=== PATIENT | male | born 1960 | race Caucasian/White ===

== ENCOUNTER 2016-07-28 09:00 | Outpatient (RCR) | payer MEDICAID ==
[~2016-07-28 09:00] MED LIST: ALBU0.632 IH; ALBU0.8322 IH; ALBUTEROL NEB; ALPR.5T PO; ARICEPT; CEPH500C PO; DNPZ10T PO; DOXY100C2 PO; DOXY100T2 PO; FLT11013 IH; FRSM20T PO; HYDR-2890 PO; HYDR-3720 PO; INSASP10V SC; INSU100C4 SQ; INSU100V6 SQ; INSU100V8 SQ; IPRA3AMP19 IH; KLOR-CON; LEVO750T24 GT; LEVO750T6 PO; LISINOPRIL; LORA1TAB PO; LORA2TAB PO; LORAZEPAM; MTF500T PO; NICO1PAT16 TD; NITR0.4T12 SL; POTA10CA43 PO; PRD10T PO; PRD50T PO; RANI75TA30 PO; RANITIDINE; RNT150T PO; SPIRIVA
--- OUTSIDE RECORDS SUMMARY | 2016-07-28 09:04 | XMS REPORT | Continuity of Care Document ---
Author Author [facility] Organization [facility] Address Unknown Phone Unavailable Care Team Providers Care Property Disposal Officer Name Role Phone Whit Khan PCP [phone] Source Comments Some departments are not documenting in the electronic medical record. If you do not see the information that you expected, contact Release of Information in the Health Information Management department at [phone] for further assistance in locating additional records.[facility] Active Allergies and Adverse Reactions Allergen Noted Date Severity Reactions Comments Levaquin 12/19/2012 HIVES Current Medications Prescription Sig. Disp. Refills Start End Date Status Date ALPRAZolam (XANAX) 0.5 mg Take 0.5 mg by mouth Active tablet three times daily as needed. furosemide (LASIX) 20 mg Take 20 mg by mouth Active tablet daily. HYDROcodone-acetaminophen Take 1 Tab by mouth five Active (+) (VICODIN) 10-325 mg times daily as needed. tablet LORazepam (ATIVAN) 1 mg Take 1 mg by mouth every Active tablet 8 hours as needed. potassium chloride (KDUR) Take 10 mEq by mouth Active 10 mEq tablet daily. ranitidine(+) (ZANTAC) Take 150 mg by mouth Active 150 mg tablet three times daily. albuterol 0.5% Inhale 2.5 mg solution as Active (PROVENTIL; VENTOLIN) 2.5 directed four times mg/0.5 mL Nebu nebulizer daily. solution levothyroxine (SYNTHROID) TAKE 1 TABLET BY MOUTH 30 Tab 1 07/13/19 Active 75 mcg tablet DAILY. NEED TO RE-CHECK 14 TSH IN 6 WEEKS. Active Problems Problem Noted Date S/P laryngectomy 11/01/2012 Pre-operative respiratory examination 10/11/2012 Overview: 160 pyh Inhalers: albuterol nebs Trach x1 year 4.0 uncuffed shiley L ast Assessment & Plan: Clear for surgery tomorrow. No additional medications or recommendations at this time. Likely has some degree of COPD, no significant emphysema noted on prior CT. Lungs are clear today. Activity tolerance is good. Seems to clear secretions ok. Tolerated anesthesia without issue in the past. Discussed importance of continued smoking cessation, early ambulation, cough and deep breathing post op. Tracheostomy dependence (HCC) 09/11/2012 Tobacco use disorder, continuous 09/11/2012 Alcohol abuse 09/11/2012 Laryngeal cancer ([facility]) Overview: Planned total laryngectomy tomorrow. Social History Tobacco Use Types Packs/Day Years Used Date Former Smoker Cigarettes 4 40 Quit: 06/13/2012 Smokeless Tobacco: Chew Current User Comments: 1 can per week Alcohol Use Drinks/Week oz/Week Comments Yes 56 Cans of 33.6 beer daily; at least 8-9, it depends beer Last Filed Vital Signs Vital Sign Reading Time Taken Blood Pressure 171/94 08/01/2015 1:21 PM CDT Pulse 85 08/01/2015 1:21 PM CDT Temperature 36.6 C (97.9 F) 10/15/2012 7:00 AM CDT Respiratory Rate 20 10/10/2012 12:50 PM CDT Height 2.007 m (6' 7") 08/01/2015 1:21 PM CDT Weight 91.354 kg (201 lb 6.4 oz) 08/01/2015 1:21 PM CDT Body Mass Index 22.68 08/01/2015 1:21 PM CDT Oxygen Saturation 99% 10/15/2012 7:00 AM CDT Plan of Care Health Maintenance Due Date Last Done Comments Physical (Comprehensive) 1968 Exam Pertussis Vaccine 1972 Tetanus Vaccine 1978 Colorectal Cancer 2011 Screening Influenza Vaccine 01/15/2016 Results from Last 3 Months Not on file
== END 2016-10-26 | disposition home or self-care (01) ==
LOC: ONC 09:00
PROVIDERS: ATTEND Internal Medicine Hematology & Oncology
DX: C32.9 Malignant neoplasm of larynx, unspecified (principal)

== ENCOUNTER → 2019-07-09 | Outpatient (CLI) | payer MEDICAID ==
[~2019-07-09] MED LIST changes: +CATHETER FLUSH 10 ML SYR IV PRN; +HOLD METFORMIN - RECEIVED CONTRAST 20 ML VIAL IV SCH; +IOHEXOL 350 MG/ML 150 ML (OMNIPAQUE 350) VIAL IV ONE; +NS 100 ML (IVPB) BAG IV ONE
[2019-07-09 10:21] LABS: BUN/CREATININE RATIO 11; CREATININE SERUM 1.11 MG/DL (0.60-1.30); GFR ESTIMATED > 60
--- NOTE | 2019-07-09 12:11 | Diagnostic Imaging Report ---
INDICATION: Laryngeal carcinoma status post laryngectomy, follow-up. TECHNIQUE: Axial imaging through the neck and chest was performed after the administration of intravenous contrast. All CT scans use one or more of the following dose optimizing techniques: automated exposure control, MA and/or KvP adjustment based on patient size and exam type or iterative reconstruction. COMPARISON: Correlation is made with prior CT from 03/19/2016. FINDINGS: CT neck: Visualized intracranial structures are unremarkable. Postsurgical changes from laryngectomy are again noted. Right chest wall port has tip in the SVC. Hyperdensity noted in the right paraesophageal location is unchanged. Submandibular and parotid glands are symmetric. Posterior nasopharynx is unremarkable. Parapharyngeal fat planes are preserved. No definite cervical chain lymphadenopathy is seen. There are no fluid collections. IMPRESSION: Stable post-therapeutic changes to the neck when compared with study from 2016. No cervical lymphadenopathy is identified. CT chest: A right chest wall port has tip within the SVC. No axillary lymphadenopathy is detected. No mediastinal or hilar lymphadenopathy is identified. No pericardial or pleural fluid is detected. No pulmonary infiltrates, nodules or masses are seen. There is some linear atelectasis or scarring in the left lower lobe. Upper abdomen is unremarkable. IMPRESSION: Left lower lobe atelectasis or scarring. CT chest is stable when compared with study from 2016. No thoracic lymphadenopathy or evidence of pulmonary metastatic disease is identified. Dictated by: Dictated on workstation # [id number]
== END ==
LOC: RAD FS 09:04
PROVIDERS: ATTEND Otolaryngology Otolaryngology/Facial Plastic Surgery
DX: Z85.21 Personal history of malignant neoplasm of larynx (principal); Z98.890 Other specified postprocedural states
CPT/HCPCS: 36415; 70491; 71260; 82565; 84520

== ENCOUNTER → 2020-12-26 | Outpatient (CLI) | payer MEDICAID ==
[~2020-12-26] MED LIST changes: -CATHETER FLUSH 10 ML SYR IV PRN; -HOLD METFORMIN - RECEIVED CONTRAST 20 ML VIAL IV SCH; -IOHEXOL 350 MG/ML 150 ML (OMNIPAQUE 350) VIAL IV ONE; -NS 100 ML (IVPB) BAG IV ONE
== END ==
LOC: CARD 14:56
PROVIDERS: ATTEND Internal Medicine Cardiovascular Disease
DX: I10 Essential (primary) hypertension (principal)
CPT/HCPCS: 93306

== ENCOUNTER → 2020-12-26 | Outpatient (CLI) | payer MEDICAID ==
[2020-12-26 14:56] LABS: CALCIUM 9.6 MG/DL (8.5-10.1); CREATININE SERUM 1.53 MG/DL (0.60-1.30); POTASSIUM 4.7 MMOL/L (3.6-5.0)
== END ==
LOC: LAB 14:25
PROVIDERS: ATTEND Internal Medicine Cardiovascular Disease
DX: I10 Essential (primary) hypertension (principal)
CPT/HCPCS: 36415; 80048

== ENCOUNTER → 2020-12-30 | Outpatient (CLI) | payer MEDICAID ==
[2020-12-30 10:43] LABS: CALCIUM 9.1 MG/DL (8.5-10.1); CREATININE SERUM 1.39 MG/DL (0.60-1.30); POTASSIUM 4.3 MMOL/L (3.6-5.0)
== END ==
LOC: LAB 10:06
PROVIDERS: ATTEND Internal Medicine Cardiovascular Disease
DX: I10 Essential (primary) hypertension (principal)
CPT/HCPCS: 36415; 80048; 80061; 82088

== ENCOUNTER → 2021-03-16 | Outpatient (CLI) | payer MEDICAID ==
[2021-03-16 10:13] LABS: ALBUMIN 4.2 GM/DL (3.2-4.5); BILIRUBIN,TOTAL 0.5 MG/DL (0.1-1.0); CALCIUM 8.8 MG/DL (8.5-10.1); CREATININE SERUM 1.19 MG/DL (0.60-1.30); POTASSIUM 4.5 MMOL/L (3.6-5.0); TOTAL PROTEIN 7.3 GM/DL (6.4-8.2)
--- NOTE | 2021-03-16 13:00 | Diagnostic Imaging Report ---
US RENAL ART DOPPLER KARIME COMP TECHNIQUE: Multi-projectional grayscale, color Doppler and spectral duplex imaging of the bilateral kidneys and renal vasculature was performed. INDICATION: Hypertension. COMPARISON: CT chest from 07/09/2019. FINDINGS: Right side: Right kidney is normal in size measuring 10 cm. There is no hydronephrosis or suspicious mass lesion. The following measurements were made for the right renal vasculature and/or as follows: Main renal artery: Color Doppler imaging shows patency of the main renal artery with normal positive end-diastolic flow. Maximal peak systolic velocity is 90 cm/s. Interlobular/arcuate arteries: Patent with normal acceleration index. PSV:Aorta : 1.25 Left side: Left kidney is normal in size measuring 10 cm. There is no hydronephrosis or suspicious mass lesion. The following measurements were made for the left renal vasculature and/or as follows: Main renal artery: Patent by color Doppler imaging with normal low-resistant waveforms. Maximal peak systolic velocity is 62 cm/s. Interlobular/arcuate arteries: Patent with normal acceleration index. PSV:Aorta : 0.86 Incidental note of diffuse hypoattenuation of the liver indicative of hepatic steatosis. IMPRESSION: 1. No features of renal artery stenosis. 2. Incidental note of diffuse hepatic steatosis. Abnormal Parameters: PSV > 200 cm/s PSV:Aorta > 3.5 Acceleration Index < 300 cm/sec2 Acceleration time > 70 msec Dictated by: Dictated on workstation # [id number]
== END ==
LOC: RAD 09:02
PROVIDERS: ATTEND Internal Medicine Cardiovascular Disease
DX: K76.0 Fatty (change of) liver, not elsewhere classified (principal); I10 Essential (primary) hypertension; E78.2 Mixed hyperlipidemia
CPT/HCPCS: 36415; 76770; 80053; 80061; 93975

== ENCOUNTER → 2021-04-15 | Outpatient (CLI) | payer MEDICAID ==
[2021-04-15 13:29] LABS: CHOLESTEROL 464 MG/DL (< 200); HDL CHOLESTEROL 47 MG/DL (40-60); TRIGLYCERIDES 1678 MG/DL (<150)
== END ==
LOC: RAD 12:45
PROVIDERS: ATTEND Internal Medicine Cardiovascular Disease
DX: E78.2 Mixed hyperlipidemia (principal)
CPT/HCPCS: 36415; 80061

== ENCOUNTER → 2021-10-22 | Outpatient (CLI) | payer MEDICAID ==
[2021-10-22 17:29] LABS: TRIGLYCERIDES 481 MG/DL (<150); VLDL CHOLESTEROL 96 MG/DL (5-40)
[2021-10-22 17:34] LABS: CHOLESTEROL 271 MG/DL (< 200)
[2021-10-22 17:35] LABS: HDL CHOLESTEROL 43 MG/DL (40-60)
== END ==
LOC: LAB 16:39
PROVIDERS: ATTEND Internal Medicine Cardiovascular Disease
DX: E78.2 Mixed hyperlipidemia (principal); I12.9 Hypertensive chronic kidney disease with stage 1 through stage 4 chronic kidney disease, or unspecified chronic kidney disease; N18.30 Chronic kidney disease, stage 3 unspecified; F17.220 Nicotine dependence, chewing tobacco, uncomplicated; E66.9 Obesity, unspecified
CPT/HCPCS: 36415; 80061

== ENCOUNTER → 2022-01-04 | Outpatient (CLI) | payer MEDICAID ==
[2022-01-04 11:20] LABS: ALBUMIN 4.4 GM/DL (3.2-4.5); BILIRUBIN,TOTAL 0.8 MG/DL (0.1-1.0); CALCIUM 9.3 MG/DL (8.5-10.1); CREATININE SERUM 1.25 MG/DL (0.60-1.30); POTASSIUM 4.6 MMOL/L (3.6-5.0); TOTAL PROTEIN 7.6 GM/DL (6.4-8.2)
== END ==
LOC: LAB 10:46
PROVIDERS: ATTEND Internal Medicine Cardiovascular Disease
DX: E78.2 Mixed hyperlipidemia (principal)
CPT/HCPCS: 36415; 80053; 80061

== ENCOUNTER → 2022-03-24 | Outpatient (CLI) | payer MEDICAID ==
[2022-03-24 13:31] LABS: CHOLESTEROL 294 MG/DL (< 200); HDL CHOLESTEROL 48 MG/DL (40-60); TRIGLYCERIDES 818 MG/DL (<150)
== END ==
LOC: LAB 12:44
PROVIDERS: ATTEND Internal Medicine Cardiovascular Disease
DX: E78.2 Mixed hyperlipidemia (principal)
CPT/HCPCS: 36415; 80061